=== PATIENT | female | born 1950 | race Caucasian/White ===

== ENCOUNTER 2017-04-24 09:50 | Inpatient (IN) | payer MEDICARE ==
[~2017-04-24] VITALS: Ht 152.4 cm; Wt 60.6 kg
[2017-04-24] MEDS ORDERED: SODIUM CHLORIDE 0.9% 1,000 ML IV ONE (10:18)
[2017-04-24] MEDS ORDERED: MORPHINE SULFATE 4 MG/ML, 1ML IVPush PRN (10:30)
[2017-04-24] MEDS ORDERED: SODIUM CHLORIDE 0.9% 1,000ML IVBOLUS ONE (10:30)
[2017-04-24] MEDS ORDERED: ONDANSETRON 2MG/ML, 2ML IVPush ONE (10:30)
[2017-04-24] MEDS ORDERED: KETOROLAC 30 MG/1 ML IVPush ONE (10:30)
[2017-04-24] MEDS ORDERED: MORPHINE SULFATE 4 MG/ML, 1ML ONE (10:35)
[2017-04-24] MEDS ORDERED: KETOROLAC 30 MG/1 ML ONE (10:36)
[2017-04-24] MEDS ORDERED: ONDANSETRON 2MG/ML, 2ML ONE (10:36)
[2017-04-24 10:38] LABS: HEMOGLOBIN 14.6 g/dL (11.7-16.4); WHITE BLOOD COUNT 11.8 x10^3/uL (3.4-10)
[2017-04-24 10:51] LABS: BLOOD UREA NITROGEN 22 mg/dL (7-18)
[2017-04-24 10:54] LABS: ASPARTATE AMINO TRANSFERASE 20 U/L (15-37)
[2017-04-24 11:21] LABS: PATH.CAST-FLAG NOT PRESENT; SPERM-FLAG NOT PRESENT; SRC-FLAG NOT PRESENT; XTAL-FLAG NOT PRESENT; YLC-FLAG NOT PRESENT
[2017-04-24] MEDS ORDERED: ONDANSETRON 2MG/ML, 2ML IVPush PRN (14:30)
[2017-04-24] MEDS ORDERED: LABETALOL 5MG/ML, 20ML IVPush PRN (14:30)
[2017-04-24] MEDS ORDERED: morphine SULFATE 10 MG/ML, 1ML IVPush PRN (14:30)
[2017-04-24] MEDS ORDERED: ENALAPRILAT 1.25 MG/ML, 2ML IVPush PRN (14:30)
[2017-04-24] MEDS ORDERED: PROMETHAZINE 25 MG/ML, 1ML IM PRN (14:30)
[2017-04-24 14:56] VITALS: BP 122/79
[2017-04-24] MEDS ORDERED: POTASSIUM CHLORIDE 40 MEQ in SODIUM CHLORIDE 0.9% 500 ML IV ONE (15:00)
[2017-04-24] MEDS: CEFTRIAXONE PMX 1GM/50ML 50 ML IV SCH (15:19)
[2017-04-24] MEDS: SODIUM CHLORIDE 0.9% 1,000 ML IV SCH (15:19)
[2017-04-24 19:26] VITALS: BP 144/82
[2017-04-25 01:48] VITALS: BP 149/88
[2017-04-25 05:45] LABS: HEMATOCRIT 38.8 % (34.6-47.8); HEMOGLOBIN 12.9 g/dL (11.7-16.4); WHITE BLOOD COUNT 8.5 x10^3/uL (3.4-10)
[2017-04-25 05:51] LABS: BLOOD UREA NITROGEN 12 mg/dL (7-18)
[2017-04-25 05:52] LABS: ASPARTATE AMINO TRANSFERASE 31 U/L (15-37)
[2017-04-25 07:41] VITALS: BP 129/71
[2017-04-25] MEDS: SODIUM CHLORIDE 0.9% 1,000 ML IV SCH (09:16)
[2017-04-25] MEDS: ENOXAPARIN 40 MG/0.4 ML SQ SCH (12:11)
[2017-04-25] MEDS ORDERED: FUROSEMIDE 20 MG/2 ML ONE (13:22)
[2017-04-25] MEDS ORDERED: LIDOCAINE 1%, 20ML ONE (13:57)
[2017-04-25 14:00] VITALS: BP 172/93
[2017-04-25] MEDS ORDERED: FENTANYL PF 100 MCG/2ML ONE (14:11)
[2017-04-25] MEDS ORDERED: MIDAZOLAM 1 MG/ML, 5ML ONE (14:11)
[2017-04-25] MEDS ORDERED: NALOXONE 1 MG/ML, 2ML ONE (14:12)
[2017-04-25] MEDS ORDERED: FLUMAZENIL 0.1 MG/1 ML, 5ML ONE (14:12)
[2017-04-25] MEDS: CEFTRIAXONE PMX 1GM/50ML 50 ML IV SCH (15:16)
[2017-04-25 20:10] VITALS: BP 162/88
[2017-04-26 01:32] VITALS: BP 160/88
[2017-04-26] MEDS: SODIUM CHLORIDE 0.9% 1,000 ML IV SCH (02:11)
[2017-04-26 05:01] LABS: HEMOGLOBIN 13.4 g/dL (11.7-16.4); WHITE BLOOD COUNT 7.5 x10^3/uL (3.4-10)
[2017-04-26 05:14] LABS: BLOOD UREA NITROGEN 18 mg/dL (7-18)
[2017-04-26 07:32] VITALS: BP 144/77
[2017-04-26] MEDS: ENOXAPARIN 40 MG/0.4 ML SQ SCH (13:00)
[2017-04-26] MEDS ORDERED: PNEUMOCOCCAL VACC.PER PHARMACY IM ONE (14:30)
[2017-04-26 14:36] VITALS: BP 160/89
[2017-04-26] MEDS ORDERED: PNEUMOCOCCAL 23 VACCINE IM-VACC ONE (15:00)
[2017-04-26] MEDS: CEFTRIAXONE PMX 1GM/50ML 50 ML IV SCH (15:11)
== END 2017-04-26 15:25 | disposition home or self-care (01) | DRG 690 ==
LOC: ED 11:00 → EDIP 12:26 → 3NE 13:59 → DCLOUNGE 04-26 15:12
PROVIDERS: ADMIT Internal Medicine; ATTEND Family Medicine
DX: N13.6 Pyonephrosis (principal); E87.6 Hypokalemia; I16.0 Hypertensive urgency; Z87.442 Personal history of urinary calculi; Z23 Encounter for immunization
CPT/HCPCS: 36415; 74176; 77012; 78708; 80048; 80053; 81001; 83690; 83735; 84100; 85025; 85610; 85730; 87086; 90732; 96361; 96374; 96375; 99156; 99157; J0696; J1885; J2250; J2405; J3010; J3480; J3490; A9562; C9898; J1940; J2310; J7030; J7040